=== PATIENT | male | born 1955 | race Caucasian/White ===

== ENCOUNTER 2025-03-02 15:17 | Emergency (ER) | payer MEDICARE, MEDICAID ==
[~2025-03-02] VITALS: Ht 188 cm; Wt 75.0 kg
[~2025-03-02 15:17] MED LIST: NO HOME MEDS
--- NOTE | 2025-03-02 15:37 | ELECTROCARDIOGRAPH REPORT ---
[facility] Test Date: 2025-03-02 Test Time: 15:21:32 Pat Name: CODY URRUTIA Department: EMERGENCY ROOM Room: Gender: M [employer]: : 1955 Requested By: DEPARTMENT EMERGENCY Order Number: [id number] Reading MD: Measurements Intervals [place] Rate: 45 P: -9 UT: 159 QRS: 26 QRSD: 116 T: -11 QT: 484 QTc: 419 Interpretive Statements Sinus bradycardia Incomplete right bundle branch block Inferior infarct, age indeterminate Please click the below link to view image of tracing.
[2025-03-02 15:58] LABS: BASOPHILS % (AUTO) 0.7 % (0-1); EOSINOPHILS # (AUTO) 0.2 X10'3 (0-0.9); EOSINOPHILS % (AUTO) 4.9 % (0-6); HEMATOCRIT 40.7 % (42.0-52.0); HEMOGLOBIN 13.7 g/dl (14.0-17.9); LYMPHOCYTES # (AUTO) 1.3 X10'3 (1.1-4.8); LYMPHOCYTES % (AUTO) 26.8 % (21-51); MEAN CORPUSCULAR HEMOGLOBIN 32.1 PG (27.0-31.0); MEAN CORPUSCULAR HGB CONC 33.8 g/dL (33.0-36.5); MEAN CORPUSCULAR VOLUME 94.9 FL (78-98); MEAN PLATELET VOLUME 7.4 FL (7.4-10.4); MONOCYTES # (AUTO) 0.6 X10'3 (0-0.9); MONOCYTES % (AUTO) 12.7 % (2-12); NEUTROPHILS # (AUTO) 2.8 X10'3 (1.8-7.7); NEUTROPHILS % (AUTO) 54.9 % (42-75); PLATELET COUNT 214 X10'3 (140-440); RED BLOOD COUNT 4.28 X10'6 (4.70-6.10); RED CELL DISTRIBUTION WIDTH 13.9 % (11.5-14.5)
--- NOTE | 2025-03-02 16:03 | RADIOLOGY REPORT ---
CHEST RADIOGRAPH Indication: CP Technique: Single frontal view of the chest was obtained Comparison: None FINDINGS: Lines and Tubes: None Lungs: No focal consolidation. Pleura: No effusion. No pneumothorax. Cardiomediastinal contours: Unremarkable Bones: No acute osseous abnormality. IMPRESSION: 1. No acute cardiopulmonary disease.
[2025-03-02 16:14] LABS: ALANINE AMINOTRANSFERASE 19 U/L (12-78); ALBUMIN 3.2 G/DL (3.4-5.0); ALBUMIN/GLOBULIN RATIO 1.2 (1.1-1.5); ALKALINE PHOSPHATASE 32 IU/L (46-116); ANION GAP 6 (8-16); ASPARTATE AMINO TRANSFERASE 18 U/L (10-37); BILIRUBIN,TOTAL 0.4 MG/DL (0.1-1.0); BLOOD UREA NITROGEN 16 MG/DL (7-18); CALCIUM 8.1 MG/DL (8.5-10.1); CHLORIDE 108 MMOL/L (99-107); GLUCOSE 106 MG/DL (70-104); POTASSIUM 4.6 MMOL/L (3.5-5.1); SODIUM 141 MMOL/L (135-145); TOTAL CARBON DIOXIDE 27.2 MMOL/L (24-32); TOTAL PROTEIN 5.9 G/DL (6.4-8.2); eCRCL 72 ML/MIN; eGFR 74 ML/MIN
[2025-03-02 16:21] LABS: PRO BRAIN NATRIURETIC PEPTIDE 150 PG/ML (0-125)
--- NOTE | 2025-03-02 17:17 | RADIOLOGY REPORT ---
Indication: trauma Technique: 3 views left elbow Comparison: None FINDINGS/IMPRESSION: No radiographic evidence for acute fracture or dislocation. Posterior left elbow soft tissue edema.
--- NOTE | 2025-03-02 17:19 | RADIOLOGY REPORT ---
CLINICAL INDICATION: pail TECHNIQUE: 2 radiographic views of the left shoulder were obtained. Comparison: None FINDINGS/IMPRESSION: There is no evidence of acute fracture or dislocation. The visualized joint space is well maintained. The alignment is anatomical. There is no radiopaque foreign body.
--- NOTE | 2025-03-02 18:25 | RADIOLOGY REPORT ---
CT BRAIN WITHOUT CONTRAST HISTORY: head injury with LOC TECHNIQUE: Axial scans were obtained from the skull base through the vertex without contrast. Sagitta l and coronal reformats were generated. One or more of the following radiation dose reduction techniq ues were used for this examination: automated exposure control, adjustment of the mA and/or kV accord ing to patient size, use of iterative reconstruction technique. COMPARISON: None FINDINGS: No acute intracranial hemorrhage or evidence of large vessel territorial infarction identified at thi s time. No midline shift. The basilar cisterns are patent. Mild, patchy ethmoidal sinus mucosal thickening. The mastoid air cells are clear. No grossly displac ed calvarial fracture is identified. IMPRESSION: No acute intracranial findings.
--- NOTE | 2025-03-02 18:25 | Physician Documentation ---
History of Present Illness ~ Chief Complaint: Bradycardia Stated Complaint: FALL Time Seen by MD: 15:37 Primary Medical Doctor: none Mode of Arrival: EMS HPI 70-year-old male presents to the emergency department after falling 3 ft from a scaffold, patient states he was putting up some tape getting ready the paint when a dog knocked him off the scaffolding, initially patient did not report loss of consciousness however later on his arrived to state that he did have a loss of consciousness after the injury, he does complain of left elbow pain. Timing/Duration: minutes Activities at Onset: none Arrhythmia: not related to medication History of: no pertinent history Modifying Factors: Improves with: nothing Medication Reconciliation Allergies: Coded Allergies: No Known Allergies (Unverified , 12/22/10) Miscellaneous Medications Home Med List (No Home Medications), (Reported) Past Medical History Past Medical History: No Pertinent History Past Surgical History: no surgical history Lives with: Family Lives In: Home Occupation: unemployed Review of Systems All Other Systems at this time: Reviewed and Negative Constitutional: Reports: see HPI Musculoskeletal: Reports: pain, swelling Physical Exam Vital Signs: RN Vital Signs have been reviewed: Yes, Temperature: 98.6, Source: Oral, Heart Rate: 46, Respiratory Rate: 14, BP: 97/66, Pulse Oximetry: 98, Weight: 75.000 Pulse Oximetry Reflects: adequate oxygenation General Appearance: alert, no apparent distress EENT: normal ENT inspection, moist mucous membranes Neck: normal inspection, full range of motion, supple Respiratory: lungs clear, normal breath sounds, no respiratory distress Chest: No: no accessory muscle use, accessory muscle use, retractions, chest non-tender, chest tender, tenderness reproducible, other Cardiovascular: bradycardia Extremities As far outpatient left elbow and shoulder without deformity Neurologic: oriented x4, 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 Matthew: Received care of patient to follow up CT scan and road test. Patient has passed the road test, CT scan reassuring. Results/Orders Results/Orders Orders - LAWSON MATTHEW MD General Nursing Order (03/02/25 18:43) Vital Signs 03/02/25 03/02/25 03/02/25 03/02/25 15:17 15:43 15:51 16:36 Temp 98.6 98.6 Pulse 52 43 43 Resp 18 15 12 14 B/P (MAP) 98/63 110/65 (80) 100/60 (73) Pulse Ox 96 98 98 03/02/25 03/02/25 03/02/25 03/02/25 16:37 17:31 18:24 18:24 Pulse 46 56 Resp 14 12 B/P (MAP) 97/66 (76) 109/68 (82) Pulse Ox 98 98 O2 Delivery Room Air* FiO2 N/A Laboratory Tests Test 03/02/25 15:44 03/02/25 17:48 03/02/25 18:35 White Blood Count 5.0 Red Blood Count 4.28 L Hemoglobin 13.7 L Hematocrit 40.7 L Mean Corpuscular Volume 94.9 Mean Corpuscular Hemoglobin 32.1 H Mean Corpuscular Hemoglobin Concent 33.8 Red Cell Distribution Width 13.9 Platelet Count 214 Mean Platelet Volume 7.4 Neutrophils (%) (Auto) 54.9 Lymphocytes (%) (Auto) 26.8 Monocytes (%) (Auto) 12.7 H Eosinophils (%) (Auto) 4.9 Basophils (%) (Auto) 0.7 Neutrophils # (Auto) 2.8 Lymphocytes # (Auto) 1.3 Monocytes # (Auto) 0.6 Eosinophils # (Auto) 0.2 Basophils # (Auto) 0.0 CBC Comment Sodium Level 141 Potassium Level 4.6 Chloride Level 108 H Carbon Dioxide Level 27.2 Anion Gap 6 L Blood Urea Nitrogen 16 Creatinine 1.00 Estimated GFR/1.73 m2 74 BUN/Creatinine Ratio 16.0 Glucose Level 106 H Calcium Level 8.1 L Total Bilirubin 0.4 Aspartate Amino Transf (AST/SGOT) 18 Alanine Aminotransferase (ALT/SGPT) 19 Alkaline Phosphatase 32 L Troponin I High Sensitivity 7 11 10 Pro-B-Type Natriuretic Peptide 150 H Total Protein 5.9 L Albumin 3.2 L Globulin 2.7 Albumin/Globulin Ratio 1.2 Chemistry Comments Troponin I High Sens Percent Delta 57 9 Troponin I Hi Sens Absolute Change 4 -1 Re-Evaluation Re-Evaluation : Additional Comment 5:45 p.m., informed by patient's that he did have a loss of consciousness after the fall which she witnessed, this was not reported initially upon arrival, CT scan of the brain he has been added on. 6:00 p.m. case signed out to Dr. Matthew in the shift change pending CT scan of the head. EKG/XRAY/CT/US/VASC/MRI EKG : Additional Comment Sinus bradycardia rate of 45, normal axis, normal intervals, incomplete right bundle-branch block, abnormal EKG. Inferior infarct age undetermined with Q- wave in lead three and AVF. Medical Decision Making Differential Dx:Considerations: Include: angina / OK, atrial fibrillation, atrial flutter, MAT, sinus tachycardia, WPW, 1st degree AV block, ventricular fibrillation, ventricular tachycardia Departure Disposition: HOME / SELF CARE / HOMELESS Impression: Primary Impression: Fall Condition: Stable Discharge Instructions: Fall Prevention in the Home, Adult Referrals: NO PRIMARY CARE PROVIDER (PCP) Education Educated: Patient, Family Educated regarding: need for follow up Signature Scribe Signature: No scribe Attestation: The note accurately reflects work and decisions made by me.Lawson Matthew MD 03/02/25 19:06 GILDARDO BAILEY DO March 02, 2025 18:25 LAWSON MATTHEW MD March 02, 2025 19:06
[2025-03-02 19:27] VITALS: BP 117/73; PULSE 55; RESP 19; TEMP 98.6; O2SAT 100
== END 2025-03-02 19:30 | disposition home or self-care (01) ==
LOC: ER 15:17
DX: M25.522 Pain in left elbow (principal); W19.XXXA Unspecified fall, initial encounter; Y93.89 Activity, other specified; Y92.89 Other specified places as the place of occurrence of the external cause; Y99.8 Other external cause status; R51.9 Headache, unspecified
CPT/HCPCS: 36415; 70450; 71045; 73030; 73080; 80053; 83880; 84484; 85025; 93005; 99285; A6402; A6449